=== PATIENT | female | born 1955 | race Caucasian/White ===

== ENCOUNTER 2023-04-19 16:51 | Emergency (ER) | payer MEDICARE, SELFPAY ==
[2023-04-19 17:52] VITALS: BP 115/75; PULSE 105; RESP 18; TEMP 36.8; O2SAT 98; BMI 34.7
== END 2023-04-19 19:27 | disposition left against medical advice (07) ==
PROVIDERS: Emergency Provider Family Medicine
DX: Z53.21 Procedure and treatment not carried out due to patient leaving prior to being seen by health care provider (principal)